=== PATIENT | female | born 1975 | race Caucasian/White ===

== ENCOUNTER 2016-07-13 10:39 | Emergency (ER) | payer OTHER | END 2016-07-13 11:22 | disposition home or self-care (01) | LOC: ER1 10:39 | DX: J40 Bronchitis, not specified as acute or chronic (principal); F17.210 Nicotine dependence, cigarettes, uncomplicated; Z88.0 Allergy status to penicillin; Z88.1 Allergy status to other antibiotic agents; Z88.8 Allergy status to other drugs, medicaments and biological substances | CPT/HCPCS: 87081; 87880; 99283 ==

== ENCOUNTER → 2020-04-09 | Outpatient (CLI) | payer BC, OTHER ==
[~2020-04-09] MED LIST: ANTIVERT 25MG T25 MG PO; VIBRAMYCIN100 MG PO; ZOFRAN ODT 4 MG4 MG SL
== END ==
LOC: EXRD 09:48
DX: R07.81 Pleurodynia (principal); R06.02 Shortness of breath; M54.2 Cervicalgia; M50.323 Other cervical disc degeneration at C6-C7 level
CPT/HCPCS: 71101; 72040

== ENCOUNTER → 2020-09-04 | Outpatient (CLI) | payer BC, OTHER | LOC: EXRD 14:20 | DX: R07.9 Chest pain, unspecified (principal) | CPT/HCPCS: 71046 ==

== ENCOUNTER → 2020-10-04 | Outpatient (CLI) | payer BC, OTHER | LOC: KOH-I 08:30 | DX: R07.81 Pleurodynia (principal); R06.02 Shortness of breath; R91.8 Other nonspecific abnormal finding of lung field | CPT/HCPCS: 71250 ==

== ENCOUNTER → 2020-10-30 | Outpatient (CLI) | payer BC, OTHER | LOC: HEART 5 13:54 | DX: R06.02 Shortness of breath (principal) | CPT/HCPCS: 94010 ==

== ENCOUNTER → 2020-11-22 | Outpatient (CLI) | payer BC, OTHER | LOC: MRI 11:15 | DX: R42 Dizziness and giddiness (principal); R41.3 Other amnesia; G43.909 Migraine, unspecified, not intractable, without status migrainosus | CPT/HCPCS: 70551 ==

== ENCOUNTER → 2020-12-10 | Outpatient (CLI) | payer BC, OTHER | LOC: HEART 5 11-19 11:00 | DX: R07.9 Chest pain, unspecified (principal); R06.02 Shortness of breath; R00.2 Palpitations; J06.9 Acute upper respiratory infection, unspecified | CPT/HCPCS: 93306 ==

== ENCOUNTER → 2021-05-09 | Outpatient (CLI) | payer BC, OTHER ==
[2021-05-09 09:40] LABS: HEMOGLOBIN 14.5 gm/dl (12.3-15.3); RED BLOOD COUNT 4.63 M/UL (4.00-5.10); WHITE BLOOD COUNT 10.6 K/UL (4.5-11.0)
[2021-05-10 05:09] LABS: A/G RATIO 1.9 (1.2-2.2); BILIRUBIN, TOTAL 0.4 mg/dL (0.0-1.2); CALCIUM, SERUM 9.6 mg/dL (8.7-10.2); CREATININE, SERUM 0.68 mg/dL (0.57-1.00); GLOBULIN, TOTAL 2.3 g/dL (1.5-4.5); POTASSIUM, SERUM 4.5 mmol/L (3.5-5.2); PROTEIN, TOTAL, SERUM 6.6 g/dL (6.0-8.5)
== END ==
LOC: LAB 08:44
PROVIDERS: Nurse Practitioner Family
DX: U07.1 COVID-19 (principal); R06.00 Dyspnea, unspecified; R06.02 Shortness of breath
CPT/HCPCS: 36415; 80053; 85025; 85379; 85652

== ENCOUNTER → 2021-06-06 | Outpatient (CLI) | payer BC, OTHER ==
[2021-06-06 12:23] LABS: HEMOGLOBIN 14.4 gm/dl (12.3-15.3); RED BLOOD COUNT 4.68 M/UL (4.00-5.10); WHITE BLOOD COUNT 8.4 K/UL (4.5-11.0)
[2021-06-10 00:07] LABS: DIPHTHERIA ANTITOXOID AB 0.33 IU/mL (<0.10); TETANUS ANTITOXOID IGG AB 1.89 IU/mL (<0.10)
== END ==
LOC: LAB 11:45
PROVIDERS: Allergy & Immunology
DX: J44.9 Chronic obstructive pulmonary disease, unspecified (principal); J31.0 Chronic rhinitis; J98.8 Other specified respiratory disorders; J98.9 Respiratory disorder, unspecified
CPT/HCPCS: 36415; 82784; 82785; 85025

== ENCOUNTER → 2021-07-22 | Outpatient (CLI) | payer BC, OTHER | LOC: KOH-I 09:30 | DX: J32.9 Chronic sinusitis, unspecified (principal) | CPT/HCPCS: 70486 ==

== ENCOUNTER 2021-10-10 07:33 | Emergency (ER) | payer BC, OTHER ==
[2021-10-10 09:15] LABS: HEMOGLOBIN 12.9 gm/dl (12.3-15.3); RED BLOOD COUNT 4.17 M/UL (4.00-5.10); WHITE BLOOD COUNT 8.1 K/UL (4.5-11.0)
[2021-10-10 09:44] LABS: BUN/CREATININE RATIO 10 (0-10)
[2021-10-10] MEDS ORDERED: HYDROXYCHLOROQ200 MG PO (13:02)
[2021-10-10] MEDS ORDERED: VITAMIN D31250 MCG PO (13:03)
[2021-10-10] MEDS ORDERED: NICOTINE PATCH1 EAC2 TD (13:04)
[2021-10-10] MEDS ORDERED: BUSPIRONE HCL15 MG PO (13:04)
[2021-10-10] MEDS ORDERED: ONDANSETRON ODT4 MG PO (13:05)
[2021-10-10] MEDS ORDERED: MONTELUKAST SOD10 MG PO (13:05)
[2021-10-10] MEDS ORDERED: IPRAT-ALBUT 0.5-3 ML INH (13:06)
[2021-10-10] MEDS ORDERED: EXCEDRIN EXTRA1 EACH PO (13:07)
[2021-10-10] MEDS ORDERED: TRELEGY ELLIPT1 EAC1 INH (13:07)
== END 2021-10-10 13:12 | disposition left against medical advice (07) ==
LOC: ER1 07:33 → CDU 11:48 → ER1 11:48 → CDU 10-11 09:10
PROVIDERS: Emergency Medicine
DX: R07.9 Chest pain, unspecified (principal); R51.9 Headache, unspecified; R42 Dizziness and giddiness; K21.9 Gastro-esophageal reflux disease without esophagitis; F17.200 Nicotine dependence, unspecified, uncomplicated; Z20.822 Contact with and (suspected) exposure to COVID-19
CPT/HCPCS: 70450; 70496; 70498; 71045; 80053; 81001; 82550; 82553; 82962; 84484; 84703; 85025; 93005; 96374; 96376; 99285; J2405; Q9967; U0002

== ENCOUNTER → 2021-10-22 | Outpatient (CLI) | payer BC, OTHER ==
[~2021-10-22] MED LIST changes: +BUSPIRONE HCL15 MG PO; +EXCEDRIN EXTRA1 EACH PO; +HYDROXYCHLOROQ200 MG PO; +IPRAT-ALBUT 0.5-3 ML INH; +MONTELUKAST SOD10 MG PO; +NICOTINE PATCH1 EAC2 TD; +ONDANSETRON ODT4 MG PO; +TRELEGY ELLIPT1 EAC1 INH; +VITAMIN D31250 MCG PO
[2021-10-22 08:59] LABS: HEMOGLOBIN 12.7 gm/dl (12.3-15.3); RED BLOOD COUNT 4.04 M/UL (4.00-5.10); WHITE BLOOD COUNT 7.5 K/UL (4.5-11.0)
[2021-10-22 13:41] LABS: BUN/CREATININE RATIO 10 (0-10)
[2021-10-23 07:11] LABS: FSH 35.7 mIU/mL (.); LUTEINIZING HORMONE(LH) 47.6 mIU/mL (.)
[2021-10-23 08:15] LABS: VITAMIN D, 25-HYDROXY 32.5 ng/mL (30.0-100.0)
== END ==
LOC: LAB 08:43
PROVIDERS: Nurse Practitioner Family
DX: Z00.00 Encounter for general adult medical examination without abnormal findings (principal); Z13.1 Encounter for screening for diabetes mellitus; Z13.220 Encounter for screening for lipoid disorders; N92.0 Excessive and frequent menstruation with regular cycle; N63.20 Unspecified lump in the left breast, unspecified quadrant; N94.6 Dysmenorrhea, unspecified; J44.9 Chronic obstructive pulmonary disease, unspecified; J30.9 Allergic rhinitis, unspecified; K21.9 Gastro-esophageal reflux disease without esophagitis; R10.13 Epigastric pain; E53.8 Deficiency of other specified B group vitamins; E55.9 Vitamin D deficiency, unspecified
CPT/HCPCS: 36415; 80053; 80061; 82607; 83001; 83002; 83036; 84402; 84403; 84439; 84443; 85025